=== PATIENT | female | born 1995 | race Caucasian/White ===

== ENCOUNTER 2018-09-28 15:06 | Outpatient (CLI) | payer OTHER ==
--- NOTE | 2018-09-29 08:01 | MRI ---
MRI RIGHT KNEE WITHOUT CONTRAST: INDICATIONS: Tear of the medial meniscus with right knee pain. FINDINGS: The medial and lateral menisci are intact. There is moderate chondrosis affecting the articular cartilage of the medial patellar facet and media l patella ridge. There is some increased T2 signal involving the superolateral aspect of the Hoffa's fat pad. Bone marrow signal intensity appears within normal limits. There is some fragmentation in volving the tibial tuberosity, which may reflect sequela of prior [place]-Schlatter disease. The exte nsor mechanism is intact. The MCL, ACL, PCL, and LCLC are intact. The IT band and popliteus appear within normal limits. No joint effusion or popliteal cyst is identified. IMPRESSION: 1. 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 Thi s likely approaches 50% of the involvement of the thickness of the medial patella facet. No large fu ll-thickness defect is evident. 2. Edema within the superolateral aspect of the Hoffa's fat pad can be seen in lateral patellar tend on-lateral femoral condyle friction syndrome. 3. Menisci appear intact. 4. Anterior cruciate ligament, posterior cruciate ligament, medial collateral ligament, and lateral collateral ligament complex are intact. POS: BH
== END 2018-09-28 15:07 | disposition home or self-care (01) ==
LOC: BICMRI 15:06
PROVIDERS: ATTEND Orthopaedic Surgery
DX: S83.241A Other tear of medial meniscus, current injury, right knee, initial encounter (principal); M22.2X1 Patellofemoral disorders, right knee; R60.0 Localized edema